=== PATIENT | male | born 1970 | race Caucasian/White ===

== ENCOUNTER → 2025-04-02 19:00 | Outpatient (CLI) | payer OTHER, SELFPAY | PROVIDERS: Visit Provider Nurse Practitioner Family | DX: L08.9 Local infection of the skin and subcutaneous tissue, unspecified (principal) | CPT/HCPCS: 87070; 87075; 87077; 87147; 87205 ==

== ENCOUNTER 2025-04-02 19:04 | Emergency (ER) | payer OTHER, SELFPAY ==
[2025-04-02 19:14] VITALS: BP 151/94; PULSE 84; RESP 18; TEMP 37.3; O2SAT 97; BMI 28.2
--- NOTE | 2025-04-02 19:19 | ED.SKABFB ---
HPI - Skin/Abscess/Foreign Bdy General Chief complaint: Skin/Abscess/Foreign Body Stated complaint: [facility] Sent for labs Time Seen by Provider: 04/02/25 19:17 Source: patient Mode of arrival: Ambulatory Limitations: no limitations History of Present Illness HPI narrative: 55-year-old male patient with a history of hypertension and asthma who complains of an itchy rash on his buttocks for which he was seen at the walk-in clinic and was prescribed antibiotics for probable staph or impetigo infection. He was concerned it might be herpes so they had him come over here for evaluation. He has no sores in his anus or genitals. He has not had herpes before. There is no burning. Related Data Home Medications ?Medication ?Instructions ?Recorded ?Confirmed albuterol sulfate 90 mcg/actuation 2 puff inhalation Q6H PRN wheezing 04/02/25 04/02/25 aerosol inhaler buspirone 30 mg tablet 30 mg PO BID 04/02/25 04/02/25 lisinopril 20 mg tablet 20 mg PO DAILY 04/02/25 04/02/25 needle (disp) 18 G 18 gauge x 1 #100 ea 04/02/25 04/02/25 (BD Regular Bevel [place]) syringe with needle 3 mL 23 x 1 #800 ea 04/02/25 04/02/25 (BD Luer-Sam Syringe) tadalafil 20 mg tablet 20 mg PO DAILY PRN 04/02/25 04/02/25 testosterone cypionate 200 mg/mL 200 mg IM Q2W 04/02/25 04/02/25 intramuscular oil Previous Rx's ?Medication ?Instructions ?Recorded cephalexin 500 mg capsule 500 mg PO QID 7 days #28 caps 04/02/25 mupirocin 2 % topical ointment 1 applic topical TID #22 grams 04/02/25 Allergies Allergy/AdvReac Type Severity Reaction Status Date / Time No Known Drug Allergies Allergy Unverified 04/02/25 19:18 Review of Systems Review of Systems ROS Unobtainable: All systems reviewed & are unremarkable except as noted in HPI and below Integumentary/Breasts Skin/Breast: Reports as per HPI Patient History tobacco type: smokeless tobacco Exam Narrative Exam Narrative: General: Alert and conversant. No distress. Appears well nourished and well hydrated Lungs: Nonlabored respiration. Neuro: Alert and oriented. Cranial nerves, motor, sensory and cerebellar all grossly intact. No focal deficit Skin: Patient has scabs and papules on the buttocks with a few pustules. . Otherwise Warm and normal color. No rashes Psychological: Normal affect and interaction. No evidence of delusion or psychosis. Normal mood. Initial Vital Signs Initial Vital Signs: Vital Signs Temperature 99.1 F 04/02/25 19:14 Pulse Rate 84 04/02/25 19:14 Respiratory Rate 18 04/02/25 19:14 Blood Pressure 151/94 H 04/02/25 19:14 Pulse Oximetry 97 04/02/25 19:14 Oxygen Delivery Method Room Air 04/02/25 19:14 Course Vital Signs Vital signs: Vital Signs - 8 hr 04/02/25 19:14 Temperature 99.1 F Pulse Rate 84 Respiratory Rate 18 Blood Pressure 151/94 H Pulse Oximetry 97 Oxygen Delivery Method Room Air MDM - Skin/Abscess/Foreign Bdy MDM Narrative Medical decision making narrative: Patient has a rash on the buttocks consistent with staph or strep impetigo or possibly MRSA. He has already been prescribed antibiotics by the walk-in clinic. He came over here because he wanted a urgent test for herpes but he does not have symptoms or lesions consistent with herpes. Plan will be to continue with his antibiotics and follow up with his doctor. Discharge Plan Departure Patient Disposition: Home Clinical Impression: Rash, Impetigo Instructions: Impetigo DI for Rash Activity Restrictions/Additional Instructions: Assessment: Rash on the buttocks which appears to be staph skin infection/impetigo. Does not appear to be herpes Plan: Proceed with antibiotic prescribed by walk-in clinic. Monitor symptoms and follow up with your doctor. Prescriptions: No Action lisinopril 20 mg tablet 20 mg PO DAILY (DME) syringe with needle [BD Luer-Sam Syringe] 3 mL 23 x 1 syringe See Rx Instructions .ROUTE Q2W Qty: 800 Rx Instructions: As directed (DME) needle (disp) 18 G [BD Regular Bevel [place]] 18 gauge x 1 needle See Rx Instructions .ROUTE Q2W Qty: 100 Rx Instructions: As directed buspirone 30 mg tablet 30 mg PO BID testosterone cypionate 200 mg/mL oil 200 mg IM Q2W albuterol sulfate 90 mcg/actuation HFA aerosol inhaler 2 puff inhalation Q6H PRN (Reason: wheezing) tadalafil 20 mg tablet 20 mg PO DAILY PRN cephalexin 500 mg capsule 500 mg PO QID 7 Days Qty: 28 0RF mupirocin 2 % ointment 1 applic topical TID Qty: 22 0RF Stand Alone Forms: Patient Portal/API
== END 2025-04-02 19:21 | disposition home or self-care (01) ==
PROVIDERS: Emergency Provider Emergency Medicine
DX: L01.00 Impetigo, unspecified (principal); R21 Rash and other nonspecific skin eruption
CPT/HCPCS: 87070; 87077; 87147; 87186; 87205; 99281; 99282